=== PATIENT | female | born 1935 | race Caucasian/White ===

== ENCOUNTER 2016-10-14 08:34 | Inpatient (IN) | payer MEDICARE, OTHER ==
[~2016-10-14] VITALS: Ht 160 cm; Wt 46.0 kg
[2016-10-14 09:24] LABS: Basophils # (auto) 0.1 uL; Basophils % (auto) 0.9 % (0.0-2.0); CONDITION Y; DEFINITIVE SEE PRINTOUT; Eosinophils # (auto) 0.3 uL; Eosinophils % (auto) 2.8 % (0.0-7.0); Hematocrit 32.7 % (36.0-46.0); Hemoglobin 10.9 g/dL (12.2-16.2); Lymphocytes # (auto) 2.3 uL; Lymphocytes % (auto) 22.7 % (10.0-50.0); Mean Corpuscular Hemoglobin 33.1 pg (28.0-32.0); Mean Corpuscular Hgb Conc. 33.5 g/dL (32.0-36.0); Mean Corpuscular Volume 99.1 fL (80.0-100.0); Mean Platelet Volume 7.2 fL (7.4-10.4); Monocytes % (auto) 10.1 % (0.0-12.0); Neutrophils # (auto) 6.6 uL; Neutrophils % (auto) 63.5 % (37.0-80.0); Platelet Count (auto) 661 10^3/uL (140-450); SUSPECT SEE PRINTOUT; White Blood Cell 10.3 10^3/uL (4.4-10.8)
[2016-10-14 09:29] LABS: Red Cell Distribution Width 30.9 % (11.6-16.0)
[2016-10-14] MEDS ORDERED: MORPHINE SULFATE 4 MG/ML SYRG IV ONE ×2 (09:30→12:00)
[2016-10-14] MEDS ORDERED: ONDANSETRON HCL 4 MG/2 ML VIAL IV ONE ×2 (09:30→12:00)
[2016-10-14] MEDS ORDERED: SODIUM CHLORIDE 0.9% 1,000 ML IV ONE (09:33)
[2016-10-14 09:37] LABS: INR 1.16 (0.9-1.15); Partial Thromboplastin Time 23.7 sec (22.64-33.71); Prothrombin Time 12.7 sec (9.37-12.3)
[2016-10-14 09:50] LABS: Anisocytosis Slight; Platelet Estimate Increased
[2016-10-14 09:52] LABS: Albumin 2.6 g/dL (3.4-5.0); Calcium 8.5 mg/dL (8.5-10.1); Potassium 4.1 mmol/L (3.5-5.1)
[2016-10-14 09:55] LABS: Bilirubin, Total 0.8 mg/dL (0.2-1.0); Total Protein 6.8 g/dL (6.4-8.2)
[2016-10-14 09:55] LABS: Urine Bilirubin Negative (Negative); Urine Blood Negative /uL (Negative); Urine Color Yellow (Yellow); Urine Glucose Normal (Normal); Urine Ketone Negative (Negative); Urine Nitrite Negative (Negative); Urine RBC <1 /hpf (0 - 4); Urine Squamous Epithelial Cell FEW /hpf (<5); Urine Urobilinogen Normal (Negative)
[2016-10-14] MEDS ORDERED: TETANUS-DIPTH-ACEL PERTUSSIS 0.5ML SYRG IM ONE (11:45)
[2016-10-14] MEDS ORDERED: ACETAMINOPHEN 500 MG TAB PO PRN (13:00)
[2016-10-14] MEDS ORDERED: LORazepam 0.5 MG TAB PO PRN (13:00)
[2016-10-14] MEDS ORDERED: MORPHINE SULF INJ 2 MG/ML SYRINGE 1ML IV PRN (13:00)
[2016-10-14] MEDS ORDERED: TEMAZEPAM 15 MG CAP PO PRN (13:00)
[2016-10-14] MEDS ORDERED: LACTULOSE 20Gm/30ML SOLN PO PRN (13:00)
[2016-10-14] MEDS ORDERED: NITROGLYCERIN 0.4 MG SL TAB SL PRN (13:00)
[2016-10-14] MEDS ORDERED: PANTOPRAZOLE 40 MG TAB PO ONE (13:15)
[2016-10-14] MEDS: SODIUM CHLORIDE 0.9% 1,000 ML IV SCH ×2 (13:26→22:52)
[2016-10-14] MEDS: MORPHINE SULF INJ 2 MG/ML SYRINGE 1ML IV PRN (15:50)
[2016-10-14 18:30] VITALS: BP 109/66
[2016-10-14 19:00] VITALS: BP 109/66
[2016-10-14] MEDS: HYDROcodone-ACET 5/325MG TAB PO PRN (21:11)
[2016-10-14 21:48] VITALS: BP 97/61
[2016-10-15] MEDS: HYDROcodone-ACET 5/325MG TAB PO PRN ×3 (04:52→20:05)
[2016-10-15 05:00] VITALS: BP 122/64
[2016-10-15] MEDS: SODIUM CHLORIDE 0.9% 1,000 ML IV SCH ×2 (06:55→17:42)
[2016-10-15 09:00] VITALS: BP 110/65
[2016-10-15] MEDS: PANTOPRAZOLE 40 MG TAB PO SCH ×2 (10:00→16:46)
[2016-10-15] MEDS ORDERED: PHYTONADIONE (VIT K)10 MG/ML 1ML VIAL SUBCUT ONE (10:00)
[2016-10-15] MEDS: BOOST PLUS 8 ounce PO SCH ×2 (11:58→17:41)
[2016-10-15 13:00] VITALS: BP 116/61
[2016-10-15] MEDS: MORPHINE SULF INJ 2 MG/ML SYRINGE 1ML IV PRN (16:06)
[2016-10-15 16:57] VITALS: BP_SYST 117; BP_SYST 121; BP_DIAS 69; BP_DIAS 78
[2016-10-15 22:00] VITALS: BP 119/66
[2016-10-16] MEDS: MORPHINE SULF INJ 2 MG/ML SYRINGE 1ML IV PRN (00:30)
[2016-10-16] MEDS: HYDROcodone-ACET 5/325MG TAB PO PRN ×2 (01:43→21:43)
[2016-10-16] MEDS: SODIUM CHLORIDE 0.9% 1,000 ML IV SCH ×2 (04:23→14:52)
[2016-10-16 05:00] VITALS: BP 124/70
[2016-10-16 05:50] LABS: Basophils # (auto) 0 uL; Basophils % (auto) 0.4 % (0.0-2.0); CONDITION Y; DEFINITIVE SEE PRINTOUT; Eosinophils # (auto) 0.1 uL; Eosinophils % (auto) 0.7 % (0.0-7.0); Hematocrit 28.9 % (36.0-46.0); Hemoglobin 9.6 g/dL (12.2-16.2); Lymphocytes # (auto) 1.4 uL; Lymphocytes % (auto) 14.9 % (10.0-50.0); Mean Corpuscular Hemoglobin 33.2 pg (28.0-32.0); Mean Corpuscular Hgb Conc. 33.2 g/dL (32.0-36.0); Mean Corpuscular Volume 100.2 fL (80.0-100.0); Mean Platelet Volume 6.7 fL (7.4-10.4); Monocytes # (auto) 1.2 uL; Monocytes % (auto) 13.4 % (0.0-12.0); Neutrophils # (auto) 6.5 uL; Neutrophils % (auto) 70.6 % (37.0-80.0); Platelet Count (auto) 517 10^3/uL (140-450); SUSPECT SEE PRINTOUT; White Blood Cell 9.3 10^3/uL (4.4-10.8)
[2016-10-16 06:01] LABS: INR 1.17 (0.9-1.15); Prothrombin Time 12.8 sec (9.37-12.3)
[2016-10-16 06:13] LABS: Calcium 7.7 mg/dL (8.5-10.1); Potassium 3.9 mmol/L (3.5-5.1)
[2016-10-16 06:15] LABS: BUN/Creatinine Ratio 56.3
[2016-10-16 06:23] LABS: Bilirubin, Total 0.7 mg/dL (0.2-1.0); Total Protein 5.6 g/dL (6.4-8.2)
[2016-10-16 06:36] LABS: Platelet Estimate Increased
[2016-10-16 06:37] LABS: Anisocytosis Marked; Macrocytosis Slight; Ovalocytes FEW
[2016-10-16 06:38] LABS: Hypersegmented Neutrophils Present
[2016-10-16 08:00] VITALS: BP 107/64
[2016-10-16] MEDS: BOOST PLUS 8 ounce PO SCH ×3 (08:00→18:00)
[2016-10-16] MEDS ORDERED: CLINDAMYCIN 600MG IV 50 ML IV ONE (10:24)
[2016-10-16] MEDS ORDERED: BUPIVACAINE 0.25% INJ 50ML VIAL ONE (10:42)
[2016-10-16] MEDS ORDERED: BUPIVACAINE W/ EPINEPH 0.25% INJ 50ML MDV ONE (10:42)
[2016-10-16] MEDS ORDERED: TETRACAINE 1% INJ 2 ML VIAL IJ ONE (10:43)
[2016-10-16] MEDS ORDERED: MIDAZOLAM HCL 1MG/1ML-2 ML VIAL ONE (10:44)
[2016-10-16] MEDS ORDERED: fentaNYL CITRATE 100 MCG/2 ML VL ONE (10:44)
[2016-10-16] MEDS ORDERED: DEXAMETHASONE SOD PHOS 10MG/1ML VIAL INJ ONE (11:13)
[2016-10-16] MEDS ORDERED: PROPOFOL 10 MG/ML 20 ML IV ONE (11:15)
[2016-10-16] MEDS ORDERED: HYDROmorphone HCL 2 MG/ML VL IV PRN (11:30)
[2016-10-16] MEDS ORDERED: KETOROLAC TROMETH 30 MG/ML 1ML VIAL IV ONE (11:30)
[2016-10-16] MEDS ORDERED: hydrALAZINE HCL 20 MG/ML VL IV PRN (11:30)
[2016-10-16] MEDS ORDERED: ONDANSETRON HCL 4 MG/2 ML VIAL IV ONE (11:30)
[2016-10-16] MEDS ORDERED: LABETALOL HCL 5 MG/ML 4ML SYRINGE IV PRN (11:30)
[2016-10-16] MEDS ORDERED: MORPHINE SULF INJ 2 MG/ML SYRINGE 1ML IV PRN (11:30)
[2016-10-16] MEDS ORDERED: MIDAZOLAM HCL 1MG/1ML-2 ML VIAL IV PRN (11:30)
[2016-10-16] MEDS ORDERED: ePHEDrine SULFATE 50 MG/ML AMP IV PRN (11:30)
[2016-10-16] MEDS: CLINDAMYCIN 600MG IV 50 ML IV SCH ×2 (14:23→21:42)
[2016-10-16] MEDS: PANTOPRAZOLE 40 MG TAB PO SCH (14:23)
[2016-10-16 16:30] VITALS: BP 89/47
[2016-10-16 20:00] VITALS: BP 93/59
[2016-10-16 22:00] VITALS: BP 93/59
[2016-10-17] MEDS: SODIUM CHLORIDE 0.9% 1,000 ML IV SCH ×3 (01:04→21:44)
[2016-10-17 05:00] VITALS: BP 96/51
[2016-10-17] MEDS: CLINDAMYCIN 600MG IV 50 ML IV SCH ×3 (05:31→21:44)
[2016-10-17 06:23] LABS: Basophils # (auto) 0 uL; Basophils % (auto) 0.2 % (0.0-2.0); CONDITION Y; DEFINITIVE SEE PRINTOUT; Eosinophils # (auto) 0 uL; Hematocrit 25.7 % (36.0-46.0); Hemoglobin 8.5 g/dL (12.2-16.2); Lymphocytes # (auto) 0.9 uL; Lymphocytes % (auto) 12.6 % (10.0-50.0); Mean Corpuscular Hemoglobin 33.3 pg (28.0-32.0); Mean Corpuscular Hgb Conc. 33.2 g/dL (32.0-36.0); Mean Corpuscular Volume 100.2 fL (80.0-100.0); Mean Platelet Volume 6.9 fL (7.4-10.4); Monocytes # (auto) 0.7 uL; Neutrophils # (auto) 5.8 uL; Neutrophils % (auto) 77.2 % (37.0-80.0); Platelet Count (auto) 456 10^3/uL (140-450); SUSPECT SEE PRINTOUT; White Blood Cell 7.5 10^3/uL (4.4-10.8)
[2016-10-17 06:28] LABS: Red Cell Distribution Width 30.5 % (11.6-16.0)
[2016-10-17 06:42] LABS: Potassium 4.1 mmol/L (3.5-5.1)
[2016-10-17 06:52] LABS: Albumin 1.9 g/dL (3.4-5.0); BUN/Creatinine Ratio 46.5; Calcium 7.7 mg/dL (8.5-10.1)
[2016-10-17 06:57] LABS: Bilirubin, Total 0.4 mg/dL (0.2-1.0); Total Protein 5.2 g/dL (6.4-8.2)
[2016-10-17 07:17] LABS: Anisocytosis Moderate; Ovalocytes FEW; Platelet Estimate Increased; Polychromasia Slight
[2016-10-17 07:18] LABS: Macrocytosis Slight
[2016-10-17] MEDS: BOOST PLUS 8 ounce PO SCH ×3 (08:00→17:45)
[2016-10-17 09:00] VITALS: BP 92/54
[2016-10-17] MEDS ORDERED: DOCUSATE SOD 100 MG CAP PO ONE (09:30)
[2016-10-17] MEDS ORDERED: LACTULOSE 20Gm/30ML SOLN PO PRN (09:30)
[2016-10-17] MEDS ORDERED: DOCUSATE SOD 100 MG CAP PO PRN (09:30)
[2016-10-17] MEDS: PANTOPRAZOLE 40 MG TAB PO SCH (09:55)
[2016-10-17] MEDS: ENOXAPARIN SOD 30 MG/0.3 ML SYRINGE SC SCH (09:55)
[2016-10-17] MEDS ORDERED: ENOXAPARIN SOD 40 MG/0.4 ML SYRINGE SC SCH (10:00)
[2016-10-17 13:00] VITALS: BP 113/64
[2016-10-17] MEDS ORDERED: HYDR-4416 PO (15:41)
[2016-10-17] MEDS ORDERED: OMEP20CA74 PO (15:41)
[2016-10-17] MEDS ORDERED: DOCU-94 PO (15:41)
[2016-10-17 17:00] VITALS: BP 106/61
[2016-10-17] MEDS: HYDROcodone-ACET 5/325MG TAB PO PRN (17:45)
[2016-10-17 20:00] VITALS: BP 112/68
[2016-10-17] MEDS: MORPHINE SULF INJ 2 MG/ML SYRINGE 1ML IV PRN (21:45)
[2016-10-17 22:00] VITALS: BP 112/68
[2016-10-18] VITALS (8 sets, daily range): BP systolic 92–121; BP diastolic 55–66
[2016-10-18] MEDS: MORPHINE SULF INJ 2 MG/ML SYRINGE 1ML IV PRN (02:52)
[2016-10-18] MEDS: HYDROcodone-ACET 5/325MG TAB PO PRN ×3 (05:50→18:28)
[2016-10-18] MEDS: CLINDAMYCIN 600MG IV 50 ML IV SCH (05:50)
[2016-10-18 06:36] LABS: Hemoglobin 10.2 g/dL (12.2-16.2)
[2016-10-18 07:06] LABS: Albumin 2.3 g/dL (3.4-5.0); BUN/Creatinine Ratio 33.3; Calcium 8.1 mg/dL (8.5-10.1); Potassium 4.2 mmol/L (3.5-5.1); Total Protein 6.5 g/dL (6.4-8.2)
[2016-10-18] MEDS: SODIUM CHLORIDE 0.9% 1,000 ML IV SCH ×3 (10:09→23:58)
[2016-10-18] MEDS: PANTOPRAZOLE 40 MG TAB PO SCH (10:11)
[2016-10-18] MEDS: ENOXAPARIN SOD 30 MG/0.3 ML SYRINGE SC SCH (10:11)
[2016-10-18] MEDS: BOOST PLUS 8 ounce PO SCH ×3 (10:14→18:28)
[2016-10-18] MEDS: HYDROmorphone HCL 2 MG/ML VL IV PRN (20:31)
[2016-10-19] MEDS: HYDROmorphone HCL 2 MG/ML VL IV PRN ×4 (04:58→17:55)
[2016-10-19 05:00] VITALS: BP 135/66
[2016-10-19 06:36] LABS: Basophils # (auto) 0 uL; Basophils % (auto) 0.1 % (0.0-2.0); CONDITION Y; DEFINITIVE SEE PRINTOUT; Eosinophils # (auto) 0.1 uL; Eosinophils % (auto) 0.5 % (0.0-7.0); Hematocrit 26.2 % (36.0-46.0); Hemoglobin 8.7 g/dL (12.2-16.2); Lymphocytes # (auto) 1.4 uL; Lymphocytes % (auto) 12.8 % (10.0-50.0); Mean Corpuscular Hemoglobin 32.8 pg (28.0-32.0); Mean Corpuscular Hgb Conc. 33.3 g/dL (32.0-36.0); Mean Corpuscular Volume 98.5 fL (80.0-100.0); Mean Platelet Volume 7.1 fL (7.4-10.4); Monocytes % (auto) 9.7 % (0.0-12.0); Neutrophils # (auto) 8.2 uL; Neutrophils % (auto) 76.9 % (37.0-80.0); Platelet Count (auto) 358 10^3/uL (140-450); SUSPECT SEE PRINTOUT; White Blood Cell 10.6 10^3/uL (4.4-10.8)
[2016-10-19 07:03] LABS: Calcium 7.3 mg/dL (8.5-10.1); Potassium 3.7 mmol/L (3.5-5.1)
[2016-10-19 07:24] LABS: Red Cell Distribution Width 30.9 % (11.6-16.0)
[2016-10-19 07:54] LABS: Anisocytosis Slight; Macrocytosis Slight; Platelet Estimate Adequate
[2016-10-19 07:55] LABS: Ovalocytes FEW
[2016-10-19 08:00] VITALS: BP 109/57
[2016-10-19] MEDS: BOOST PLUS 8 ounce PO SCH ×3 (08:00→17:55)
[2016-10-19 09:00] VITALS: BP 109/57
[2016-10-19] MEDS ORDERED: METOPROLOL SUCCINATE XL 50 MG TAB PO ONE (09:00)
[2016-10-19] MEDS: PANTOPRAZOLE 40 MG TAB PO SCH (09:21)
[2016-10-19] MEDS: ENOXAPARIN SOD 30 MG/0.3 ML SYRINGE SC SCH (09:21)
[2016-10-19] MEDS: SODIUM CHLORIDE 0.9% 1,000 ML IV SCH ×2 (12:52→22:39)
[2016-10-19 13:00] VITALS: BP 106/62
[2016-10-19 17:00] VITALS: BP 97/53
[2016-10-19] MEDS: LIDOCAINE 5% TOPICAL PATCH TOP SCH (19:47)
[2016-10-19 22:00] VITALS: BP 120/70
[2016-10-19] MEDS: HYDROcodone-ACET 5/325MG TAB PO PRN (23:51)
[2016-10-20] MEDS: MORPHINE SULF INJ 2 MG/ML SYRINGE 1ML IV PRN (03:18)
[2016-10-20 05:00] VITALS: BP 120/56
[2016-10-20 06:23] LABS: Hematocrit 25.4 % (36.0-46.0); Hemoglobin 8.4 g/dL (12.2-16.2)
[2016-10-20 06:45] LABS: Calcium 7.4 mg/dL (8.5-10.1); Potassium 3.7 mmol/L (3.5-5.1)
[2016-10-20 06:46] LABS: BUN/Creatinine Ratio 39.3
[2016-10-20] MEDS: HYDROmorphone HCL 2 MG/ML VL IV PRN ×3 (07:47→18:14)
[2016-10-20 08:00] VITALS: BP 122/67
[2016-10-20] MEDS: BOOST PLUS 8 ounce PO SCH ×3 (08:00→18:14)
[2016-10-20] MEDS: SODIUM CHLORIDE 0.9% 1,000 ML IV SCH ×2 (08:52→19:10)
[2016-10-20 09:00] VITALS: BP 123/72
[2016-10-20] MEDS: PANTOPRAZOLE 40 MG TAB PO SCH (09:18)
[2016-10-20] MEDS: ENOXAPARIN SOD 30 MG/0.3 ML SYRINGE SC SCH (09:19)
[2016-10-20] MEDS: LIDOCAINE 5% TOPICAL PATCH TOP SCH (09:19)
[2016-10-20] MEDS ORDERED: METOPROLOL SUCCINATE XL 50 MG TAB PO SCH (10:00)
[2016-10-20] MEDS ORDERED: LIDOCAINE 5% TOPICAL PATCH TOP SCH (10:00)
[2016-10-20 13:00] VITALS: BP 97/52
[2016-10-20 17:00] VITALS: BP 99/57
== END 2016-10-20 19:00 | disposition home health service (06) | DRG 481 ==
LOC: EDBD 08:34 → ER 08:34 → TELE 08:35 → TELE-EAST 18:09
PROVIDERS: ADMIT Internal Medicine; ATTEND Family Medicine
PROC: 0HQ0XZZ Repair Scalp Skin, External Approach (ICD-10-PCS; principal; 2016-10-14)
PROC: 0QS604Z Reposition Right Upper Femur with Internal Fixation Device, Open Approach (ICD-10-PCS; 2016-10-16)
DX: S72.142A Displaced intertrochanteric fracture of left femur, initial encounter for closed fracture (principal); E44.0 Moderate protein-calorie malnutrition; D68.9 Coagulation defect, unspecified; E87.1 Hypo-osmolality and hyponatremia; I47.1 Supraventricular tachycardia; M41.9 Scoliosis, unspecified; Z68.1 Body mass index [BMI] 19.9 or less, adult; D63.8 Anemia in other chronic diseases classified elsewhere; W18.39XA Other fall on same level, initial encounter; S01.01XA Laceration without foreign body of scalp, initial encounter; K59.00 Constipation, unspecified; F41.9 Anxiety disorder, unspecified; G47.00 Insomnia, unspecified; R79.89 Other specified abnormal findings of blood chemistry; D47.3 Essential (hemorrhagic) thrombocythemia; I70.8 Atherosclerosis of other arteries; I67.9 Cerebrovascular disease, unspecified; M19.90 Unspecified osteoarthritis, unspecified site; G89.29 Other chronic pain; I49.3 Ventricular premature depolarization; M81.0 Age-related osteoporosis without current pathological fracture; Z85.038 Personal history of other malignant neoplasm of large intestine; Z92.21 Personal history of antineoplastic chemotherapy; Z93.3 Colostomy status; Y93.89 Activity, other specified; Y92.89 Other specified places as the place of occurrence of the external cause; Z71.3 Dietary counseling and surveillance; Y99.8 Other external cause status; Z88.0 Allergy status to penicillin; Z79.899 Other long term (current) drug therapy; Z23 Encounter for immunization
CPT/HCPCS: 12002; 36415; 70450; 71010; 72192; 73501; 73502; 76000; 80048; 80053; 81001; 82550; 83735; 85014; 85018; 85025; 85610; 85730; 86850; 86900; 86901; 87086; 90715; 93005; 93306; 93886; 94761; 96361; 96372; 96374; 96375; 96376; 97116; 97163; 97530; A4565; C1713; J1100; J2250; J2405; J2704; J3430; J3490